=== PATIENT | male | born 1960 | race Caucasian/White ===

== ENCOUNTER 2016-12-07 20:36 | Observation (INO) | payer OTHER ==
[~2016-12-07] VITALS: Ht 177.8 cm; Wt 111.1 kg
[2016-12-07 21:38] LABS: HEMOGLOBIN 15.5 gm/dl (14.0-17.5); RED BLOOD COUNT 5.22 M/UL (4.20-5.50); WHITE BLOOD COUNT 8.3 K/UL (4.5-11.0)
[2016-12-07 23:27] LABS: BUN/CREATININE RATIO 18 (0-10)
[2016-12-08] MEDS ORDERED: GABAPENTIN400 MG PO (05:01)
[2016-12-08] MEDS ORDERED: IMDUR ER TAB 3030 MG PO (05:02)
[2016-12-08] MEDS ORDERED: LASIX40 MG PO (05:02)
[2016-12-08] MEDS ORDERED: KLONOPIN TAB 00.5 MG PO (05:02)
[2016-12-08] MEDS ORDERED: LORTAB 7.5-3251 EACH PO (05:02)
[2016-12-08] MEDS ORDERED: JANUVIA50 MG PO (05:03)
[2016-12-08] MEDS ORDERED: ALLERGY RELIEF1 EAC1 PO (05:04)
[2016-12-08] MEDS ORDERED: OMEPRAZOLE40 MG PO (05:04)
[2016-12-08] MEDS ORDERED: VENTOLIN HFA 66.7 GM INH (05:07)
[2016-12-08] MEDS ORDERED: PLAVIX 75 MG TA75 MG PO (05:07)
[2016-12-08] MEDS ORDERED: FLUOXETINE HCL40 MG PO (05:09)
[2016-12-08] MEDS ORDERED: LEXAPRO TAB 1010 MG PO (05:09)
[2016-12-08] MEDS ORDERED: COENZYME Q10200 MG PO (05:09)
[2016-12-08] MEDS ORDERED: HUMALOG100 UNIT/1 SQ (05:12)
[2016-12-08] MEDS ORDERED: INVOKANA300 MG PO (05:12)
[2016-12-08] MEDS ORDERED: LISINOPRIL2.5 MG PO (05:12)
[2016-12-08] MEDS ORDERED: MELOXICAM15 MG PO (05:13)
[2016-12-08] MEDS ORDERED: TOPROL XL25 MG PO (05:15)
[2016-12-08] MEDS ORDERED: REQUIP0.5 MG PO (05:15)
[2016-12-08] MEDS ORDERED: PHENERGAN 25 MG25 M1 PO (05:15)
[2016-12-08] MEDS ORDERED: SYMBICORT 160-1 INHA INH (05:16)
[2016-12-08] MEDS ORDERED: LIPITOR TAB 2020 MG PO (05:16)
[2016-12-08] MEDS ORDERED: TRAZODONE HCL100 MG PO (05:17)
[2016-12-08] MEDS ORDERED: MONTELUKAST SOD10 MG PO (05:17)
[2016-12-08] MEDS ORDERED: ZANAFLEX4 M1 PO (05:17)
[2016-12-08 06:00] LABS: RED BLOOD COUNT 5.01 M/UL (4.20-5.50); WHITE BLOOD COUNT 9.9 K/UL (4.5-11.0)
[2016-12-08 06:24] LABS: BUN/CREATININE RATIO 23 (0-10)
[2016-12-09 05:07] LABS: BUN/CREATININE RATIO 23 (0-10); HEMOGLOBIN 13.4 gm/dl (14.0-17.5); RED BLOOD COUNT 4.62 M/UL (4.20-5.50); WHITE BLOOD COUNT 9.9 K/UL (4.5-11.0)
[2016-12-10] MEDS ORDERED: PERCOCET 5-3251 EACH PO (14:10)
[2017-03-04] MEDS ORDERED: ASPIR 8181 MG PO (07:00)
[2017-03-04] MEDS ORDERED: LORCET PLUS 7.1 EACH PO (07:01)
[2017-04-01] MEDS ORDERED: NITROSTAT 0.40.4 MG SL (07:55)
[2017-04-01] MEDS ORDERED: VENTOLIN/PROVE0.5 ML INH ×2 (07:55→07:57)
[2017-04-01] MEDS ORDERED: PROAIR HFA8.5 GM INH (07:56)
[2017-04-02] MEDS ORDERED: RANEXA500 MG PO (10:42)
== END 2016-12-10 15:10 | disposition home or self-care (01) ==
LOC: ER1 20:36 → ZEROF 12-08 00:30 → M/S 12-08 00:30
PROVIDERS: Emergency Medicine; Physician Assistant Medical; ADMIT Family Medicine
PROC: 0QSG04Z Reposition Right Tibia with Internal Fixation Device, Open Approach (ICD-10-PCS; principal; 2016-12-07)
DX: S82.851A Displaced trimalleolar fracture of right lower leg, initial encounter for closed fracture (principal); I73.9 Peripheral vascular disease, unspecified; S60.511A Abrasion of right hand, initial encounter; I25.10 Atherosclerotic heart disease of native coronary artery without angina pectoris; J44.9 Chronic obstructive pulmonary disease, unspecified; G47.33 Obstructive sleep apnea (adult) (pediatric); E78.5 Hyperlipidemia, unspecified; E11.40 Type 2 diabetes mellitus with diabetic neuropathy, unspecified; I11.0 Hypertensive heart disease with heart failure; I50.9 Heart failure, unspecified; I25.5 Ischemic cardiomyopathy; D69.6 Thrombocytopenia, unspecified; E87.2 Acidosis; Z79.02 Long term (current) use of antithrombotics/antiplatelets; Z79.899 Other long term (current) drug therapy; Z95.0 Presence of cardiac pacemaker; Z95.1 Presence of aortocoronary bypass graft; Z87.891 Personal history of nicotine dependence; W19.XXXA Unspecified fall, initial encounter
CPT/HCPCS: 36415; 70450; 71010; 73130; 73590; 73610; 73630; 76000; 80048; 80053; 82947; 82962; 84484; 85025; 85027; 90715; 93005; 93926; 94640; 94664; 96374; 96375; 96376; 97116; 97530; 99285; C1713; G0378; J0690; J1100; J1650; J2250; J2270; J2370; J2405; J2795; J3010; J7030; J7120

== ENCOUNTER 2021-03-09 14:19 | Emergency (ER) | payer OTHER ==
[~2021-03-09] VITALS: Ht 177.8 cm; Wt 109.8 kg
[~2021-03-09 14:19] MED LIST: ALLERGY RELIEF1 EAC1 PO; ASPIR 8181 MG PO; CLARINEX-D 121 EACH PO; COENZYME Q10200 MG PO; COMBIVENT0.074 GM/I INH; ESCITALOPRAM OX10 MG PO; FLUOXETINE HCL40 MG PO; FUROSEMIDE40 MG PO; GABAPENTIN400 MG PO; HUMALOG100 UNIT/1 SQ; IMDUR ER TAB 3030 MG PO; INVOKANA300 MG PO; ISOSORBIDE DINI30 MG PO; JANUVIA 100 MG100 MG PO; JANUVIA50 MG PO; KLONOPIN TAB 00.5 MG PO; KLONOPIN1 MG PO; LASIX40 MG PO; LEXAPRO TAB 1010 MG PO; LIPITOR TAB 2020 MG PO; LISINOPRIL2.5 MG PO; LORCET PLUS 7.1 EACH PO; LORTAB 7.5-3251 EACH PO; LOVENOX SY40 MG/0.4 SQ; MELOXICAM15 MG PO; METOPROLOL SUCC25 MG PO; MONTELUKAST SOD10 MG PO; NITROSTAT 0.40.4 MG SL; OMEPRAZOLE40 MG PO; PERCOCET 5-3251 EACH PO; PHENERGAN 25 MG25 M1 PO; PLAVIX 75 MG TA75 MG PO; PRILOSEC OTC20 MG PO; PROAIR HFA8.5 GM INH; PROZAC40 MG PO; RANEXA500 MG PO; REQUIP0.5 MG PO; ROPINIROLE HCL0.5 MG PO; SINGULAIR10 MG PO; SYMBICORT 160-1 INHA INH; SYMBICORT 16010.2 GM INH; TOPROL XL25 MG PO; TRAZODONE HCL100 MG PO; VENTOLIN HFA 66.7 GM INH; VENTOLIN/PROVE0.5 ML INH; VIT D PO; ZANAFLEX4 M1 PO; ZANAFLEX4 MG PO
[2021-03-09 16:03] LABS: HEMOGLOBIN 12.6 gm/dl (14.0-17.5); RED BLOOD COUNT 4.56 M/UL (4.20-5.50); WHITE BLOOD COUNT 11.6 K/UL (4.5-11.0)
[2021-03-09 16:17] LABS: BUN/CREATININE RATIO 19 (0-10)
[2021-03-10 04:07] LABS: HEMOGLOBIN 11.9 gm/dl (14.0-17.5); RED BLOOD COUNT 4.33 M/UL (4.20-5.50); WHITE BLOOD COUNT 11.9 K/UL (4.5-11.0)
[2021-03-10 04:24] LABS: BUN/CREATININE RATIO 19 (0-10)
== END 2021-03-10 19:00 | disposition home or self-care (01) ==
LOC: ER1 14:19
PROVIDERS: Physician Assistant; Physician Assistant Medical
DX: E11.52 Type 2 diabetes mellitus with diabetic peripheral angiopathy with gangrene (principal); I96 Gangrene, not elsewhere classified; E11.69 Type 2 diabetes mellitus with other specified complication; M86.172 Other acute osteomyelitis, left ankle and foot; I10 Essential (primary) hypertension; F17.200 Nicotine dependence, unspecified, uncomplicated; J44.9 Chronic obstructive pulmonary disease, unspecified; E78.5 Hyperlipidemia, unspecified; I25.10 Atherosclerotic heart disease of native coronary artery without angina pectoris; Z95.0 Presence of cardiac pacemaker; Z20.822 Contact with and (suspected) exposure to COVID-19; Z95.1 Presence of aortocoronary bypass graft
CPT/HCPCS: 73630; 80048; 80053; 82962; 83605; 83735; 85025; 85027; 85652; 86140; 87040; 96374; 96375; 96376; 99283; J2060; J2543; J3370; J7030; J7070; U0002

== ENCOUNTER 2021-07-29 14:26 | Emergency (ER) | payer OTHER ==
[2021-07-29 19:21] LABS: HEMOGLOBIN 14.1 gm/dl (14.0-17.5); RED BLOOD COUNT 4.98 M/UL (4.20-5.50); WHITE BLOOD COUNT 12.4 K/UL (4.5-11.0)
[2021-07-29 19:39] LABS: BUN/CREATININE RATIO 21 (0-10)
== END 2021-07-30 02:30 | disposition home or self-care (01) ==
LOC: ER1 14:26
PROVIDERS: Physician Assistant
DX: K80.20 Calculus of gallbladder without cholecystitis without obstruction (principal); E11.65 Type 2 diabetes mellitus with hyperglycemia; S91.302A Unspecified open wound, left foot, initial encounter; I25.10 Atherosclerotic heart disease of native coronary artery without angina pectoris; Z95.0 Presence of cardiac pacemaker; X58.XXXA Exposure to other specified factors, initial encounter
CPT/HCPCS: 36415; 80053; 81001; 83690; 85025; 96374; 96375; 99284; J2270; J2405; Q9967